=== PATIENT | female | born 1950 | race Caucasian/White ===

== ENCOUNTER 2016-07-15 21:32 | Emergency (ER) | payer MEDICARE, OTHER ==
[~2016-07-15 21:32] MED LIST: BUPROPION XL300 MG PO; CLONAZEPAM0.5 M2 PO; CLONAZEPAM1 M1 PO; CLONAZEPAM1 M2 PO; HYDROCODON-ACE1 EA16 PO; HYDROCODONE/APA1 CAP PO; LAXATIVES PO; METRONIDAZOLE500 M2 PO; MUCINEX PO; NEOMYCIN SULFA500 MG PO; SIMVASTATIN20 M1 PO; SIMVASTATIN20 MG PO; TRIGLIDE160 M1 PO; VIVELLE-DO1 PATCH.B TD
[2016-07-15] MEDS ORDERED: LIPITOR20 M1 PO (22:04)
[2016-07-15] MEDS ORDERED: DICLOFENAC SODI50 M1 PO (22:05)
[2016-07-15] MEDS ORDERED: VITAMIN D31000 UNI3 PO (22:05)
== END 2016-07-15 23:03 ==
LOC: EDMED 21:32
DX: S80.01XA Contusion of right knee, initial encounter (principal); W01.0XXA Fall on same level from slipping, tripping and stumbling without subsequent striking against object, initial encounter; Y92.009 Unspecified place in unspecified non-institutional (private) residence as the place of occurrence of the external cause